=== PATIENT | male | born 1955 | race African-American/Black ===

== ENCOUNTER 2023-04-10 13:43 | Observation (INO) | payer MEDICARE, SELFPAY ==
[2023-04-10 14:41] LABS: #Eosinphils 0.1 10x3/uL (0.0-0.5); #Monocytes 0.7 10x3/uL (0.0-1.1); %Basophils 0.5 % (0.0-2.0); %Eosinophils 1.3 % (0.0-6.0); %Lymphocytes 22.3 % (18.0-47.0); %Monocytes 9.7 % (0.0-10.0); %Neutrophils 66.1 % (40.0-75.0); Hemoglobin 16.1 g/dL (13.5-17.5); Mean Corpuscular HGB CONC 35.8 g/dL (32.0-36.0); Mean Corpuscular Hemoglobin 32.6 pg (27.0-33.0); Mean Corpuscular Volume 91.1 fl (81.2-95.1); Mean Platelet Volume 9.7 fl (7.4-10.4); Platelet Count 175 10x3/uL (150-450); RBC Distribution Width 14.9 % (11.5-14.5); Red Blood Cell (RBC) Count 4.94 10x6/uL (4.32-5.72); White Blood Cell (WBC) Count 7.5 10x3/uL (3.5-10.5)
[2023-04-10 14:49] LABS: ALT (SGPT) 18 U/L (8-55); AST (SGOT) 16 U/L (5-34); Albumin 3.9 g/dL (3.4-4.8); Alkaline Phosphatase 55 U/L (40-110); Anion Gap 13 mmol/L (10-20); BUN (Urea Nitrogen) 17 mg/dL (8.4-25.7); Bilirubin, Total 0.8 mg/dL (0.2-1.2); Calc. Creatinine Clearance 0 mL/min (70-130); Calcium 9.2 mg/dL (7.8-10.44); Carbon Dioxide 27 mmol/L (23-31); Chloride 102 mmol/L (98-107); Estimated GFR 62; Globulin 2.9 g/dL (2.4-3.5); Glucose 123 mg/dL (80-115); Potassium 3.7 mmol/L (3.5-5.1); Protein, Total 6.8 g/dL (5.8-8.1); Sodium 138 mmol/L (136-145)
[2023-04-10 14:53] LABS: Troponin I 0.018 ng/mL (< 0.028)
[2023-04-10] MEDS ORDERED: Furosemide 40 MG (4 mL) VIAL ONE (19:16)
[2023-04-10] MEDS ORDERED: Potassium Chloride 20 MEQ TAB ONE (19:16)
[2023-04-10 19:50] LABS: Free T4 (Free Thyroxine) 0.88 ng/dL (0.70-1.48); Thyroid Stimulating Hormone 1.9963 uIU/mL (0.35-4.94)
[2023-04-10] MEDS ORDERED: Ondansetron PF 4 MG/2 ML Vial IVP PRN (20:07)
[2023-04-10] MEDS ORDERED: Guaifenesin DM 100-10/5 ML UDCUP PO PRN (20:07)
[2023-04-10] MEDS ORDERED: Calcium Carbonate 500 MG ChewTAB PO PRN (20:07)
[2023-04-10] MEDS ORDERED: Acetaminophen 325 MG TAB PO PRN (20:07)
[2023-04-10] MEDS ORDERED: Zolpidem Tartrate 5 MG TAB PO PRN (20:07)
[2023-04-10] MEDS ORDERED: Senokot S 8.6-50 MG TAB PO PRN (20:07)
[2023-04-10] MEDS ORDERED: Magnesium Sulfate/D5W 1 GM/100 ML BAG IVPB SCH (20:15)
[2023-04-10] MEDS ORDERED: Ipratropium/Albuterol 3 ML NEB NEB PRN (20:19)
[2023-04-10 23:30] VITALS: BMI 33.0
[2023-04-10] MEDS ORDERED: Carvedilol 25 MG TAB PO SCH (23:30)
[2023-04-10] MEDS ORDERED: Atorvastatin Calcium 20 MG TAB PO SCH (23:30)
[2023-04-10] MEDS ORDERED: Apixaban 5 MG TAB PO SCH (23:45)
[2023-04-10] MEDS ORDERED: Magnesium Sulfate/D5W 1 GM in Premix 1 BAG IVPB SCH (23:59)
[2023-04-11 04:23] LABS: Anion Gap 12 mmol/L (10-20); BUN (Urea Nitrogen) 17 mg/dL (8.4-25.7); Calc. Creatinine Clearance 110 mL/min (70-130); Calcium 9.1 mg/dL (7.8-10.44); Carbon Dioxide 26 mmol/L (23-31); Chloride 104 mmol/L (98-107); Estimated GFR 88; Glucose 144 mg/dL (80-115); Magnesium 2.2 mg/dL (1.6-2.6); Potassium 3.7 mmol/L (3.5-5.1); Sodium 138 mmol/L (136-145)
[2023-04-11 04:29] LABS: Troponin I 0.016 ng/mL (< 0.028)
[2023-04-11] MEDS ORDERED: Budesonide 0.5 MG/2 ML NEB INH SCH (06:30)
[2023-04-11] MEDS ORDERED: Furosemide 40 MG TAB PO SCH (07:30)
[2023-04-11] MEDS ORDERED: Carvedilol 25 MG TAB PO SCH (08:00)
[2023-04-11] MEDS ORDERED: Methimazole 5 MG TAB PO SCH (09:00)
[2023-04-11] MEDS ORDERED: Apixaban 5 MG TAB PO SCH (09:00)
[2023-04-11] MEDS ORDERED: Allopurinol 100 MG TAB PO SCH (09:00)
[2023-04-11 16:16] VITALS: BP 176/76; TEMP 98.6
[2023-04-11] MEDS ORDERED: Atorvastatin Calcium 20 MG TAB PO SCH (21:00)
== END 2023-04-11 15:45 | disposition home or self-care (01) ==
LOC: CSHERS 13:43 → CSHTELE 18:58
PROVIDERS: ADMIT Student in an Organized Health Care Education/Training Program; ATTEND Nurse Practitioner Acute Care
PROC: B246ZZZ Ultrasonography of Right and Left Heart (ICD-10-PCS; principal; 2023-04-10)
DX: R55 Syncope and collapse (principal); I48.91 Unspecified atrial fibrillation; I50.9 Heart failure, unspecified; E78.5 Hyperlipidemia, unspecified; I11.0 Hypertensive heart disease with heart failure; I49.8 Other specified cardiac arrhythmias; E66.9 Obesity, unspecified; I16.0 Hypertensive urgency; I25.2 Old myocardial infarction; E03.9 Hypothyroidism, unspecified; M10.9 Gout, unspecified; J44.9 Chronic obstructive pulmonary disease, unspecified; Z95.810 Presence of automatic (implantable) cardiac defibrillator; Z79.899 Other long term (current) drug therapy; Z79.01 Long term (current) use of anticoagulants; Z90.49 Acquired absence of other specified parts of digestive tract; Z87.891 Personal history of nicotine dependence; Z79.890 Hormone replacement therapy
CPT/HCPCS: 71045; 80048; 83735 ×2; 83880 ×2; 84439; 84484 ×2; 93005; 93306; 94640 ×2; 96374 ×2; 99285; G0378 ×2; J3475; 36415; 80053; 84443; 85025; J1940; J7620; J7626

== ENCOUNTER 2023-04-15 00:12 | Inpatient (IN) | payer MEDICARE, OTHER ==
[2023-04-15 00:30] LABS: #Eosinphils 0.2 10x3/uL (0.0-0.5); #Monocytes 0.7 10x3/uL (0.0-1.1); #Neutrophils 5.1 10x3/uL (1.5-8.4); %Basophils 0.5 % (0.0-2.0); %Eosinophils 3.2 % (0.0-6.0); %Lymphocytes 19.7 % (18.0-47.0); %Neutrophils 67.3 % (40.0-75.0); Hematocrit 47.6 % (38.8-50.0); Hemoglobin 16.7 g/dL (13.5-17.5); Mean Corpuscular HGB CONC 35.1 g/dL (32.0-36.0); Mean Corpuscular Hemoglobin 32.4 pg (27.0-33.0); Mean Corpuscular Volume 92.4 fl (81.2-95.1); Mean Platelet Volume 9.7 fl (7.4-10.4); Platelet Count 177 10x3/uL (150-450); Red Blood Cell (RBC) Count 5.15 10x6/uL (4.32-5.72); White Blood Cell (WBC) Count 7.6 10x3/uL (3.5-10.5)
[2023-04-15 00:48] LABS: ALT (SGPT) 27 U/L (8-55); AST (SGOT) 22 U/L (5-34); Albumin 4.1 g/dL (3.4-4.8); Alkaline Phosphatase 59 U/L (40-110); Anion Gap 14 mmol/L (10-20); BUN (Urea Nitrogen) 18 mg/dL (8.4-25.7); Bilirubin, Total 0.5 mg/dL (0.2-1.2); Calc. Creatinine Clearance 0 mL/min (70-130); Calcium 9.8 mg/dL (7.8-10.44); Carbon Dioxide 26 mmol/L (23-31); Chloride 104 mmol/L (98-107); Estimated GFR 72; Globulin 3.3 g/dL (2.4-3.5); Glucose 126 mg/dL (80-115); Potassium 4.1 mmol/L (3.5-5.1); Protein, Total 7.4 g/dL (5.8-8.1); Sodium 140 mmol/L (136-145)
[2023-04-15 00:54] LABS: Troponin I 0.023 ng/mL (< 0.028)
[2023-04-15 01:14] LABS: Magnesium 2.2 mg/dL (1.6-2.6)
[2023-04-15] MEDS ORDERED: Senokot S 8.6-50 MG TAB PO PRN (02:10)
[2023-04-15] MEDS ORDERED: Acetaminophen 325 MG TAB PO PRN (02:10)
[2023-04-15] MEDS ORDERED: Ventolin HFA Inhaler 60 PUFF INHALER INH PRN (02:12)
[2023-04-15] MEDS ORDERED: Amiodarone 450 MG in Dextrose 5% in Water 250 ML IVPB SCH (02:15)
[2023-04-15] MEDS ORDERED: Losartan 25 MG TAB PO SCH ×2 (02:15→09:00)
[2023-04-15] MEDS ORDERED: Amiodarone In Dextrose 200 ML ONE (02:17)
[2023-04-15] MEDS ORDERED: Amiodarone 150 MG/3 ML VIAL ONE (02:17)
[2023-04-15] MEDS ORDERED: Amiodarone In Dextrose 200 ML IVPB SCH (02:30)
[2023-04-15 03:24] VITALS: BMI 32.7
[2023-04-15 08:33] LABS: Anion Gap 15 mmol/L (10-20); BUN (Urea Nitrogen) 19 mg/dL (8.4-25.7); Calc. Creatinine Clearance 105 mL/min (70-130); Calcium 9.2 mg/dL (7.8-10.44); Carbon Dioxide 21 mmol/L (23-31); Chloride 106 mmol/L (98-107); Estimated GFR 85; Glucose 137 mg/dL (80-115); Magnesium 2.1 mg/dL (1.6-2.6); Potassium 4.1 mmol/L (3.5-5.1); Sodium 138 mmol/L (136-145)
[2023-04-15] MEDS: Famotidine 20 MG TAB PO SCH ×2 (08:43→20:43)
[2023-04-15] MEDS: Allopurinol 100 MG TAB PO SCH (08:43)
[2023-04-15] MEDS: Carvedilol 25 MG TAB PO SCH ×2 (08:43→20:43)
[2023-04-15] MEDS: Furosemide 40 MG TAB PO SCH (08:43)
[2023-04-15] MEDS: Apixaban 5 MG TAB PO SCH ×2 (08:44→20:43)
[2023-04-15] MEDS: Methimazole 5 MG TAB PO SCH (08:57)
[2023-04-15] MEDS ORDERED: Methimazole 5 MG TAB PO SCH (09:00)
[2023-04-15] MEDS: Amiodarone 200 MG TAB PO SCH ×2 (09:06→20:43)
[2023-04-15] MEDS ORDERED: Lisinopril 20 MG TAB PO SCH (09:30)
[2023-04-15] MEDS: Budesonide 0.25 MG/2 ML NEB INH SCH ×2 (10:05→21:25)
[2023-04-15] MEDS: Atorvastatin Calcium 20 MG TAB PO SCH (20:43)
[2023-04-16 03:45] LABS: #Eosinphils 0.2 10x3/uL (0.0-0.5); #Monocytes 0.7 10x3/uL (0.0-1.1); #Neutrophils 4.5 10x3/uL (1.5-8.4); %Basophils 0.5 % (0.0-2.0); %Eosinophils 2.8 % (0.0-6.0); %Lymphocytes 25.8 % (18.0-47.0); %Monocytes 9.6 % (0.0-10.0); Hematocrit 45.1 % (38.8-50.0); Hemoglobin 15.8 g/dL (13.5-17.5); Mean Corpuscular Hemoglobin 32.3 pg (27.0-33.0); Mean Corpuscular Volume 92.2 fl (81.2-95.1); Mean Platelet Volume 10.6 fl (7.4-10.4); Platelet Count 192 10x3/uL (150-450); RBC Distribution Width 14.6 % (11.5-14.5); Red Blood Cell (RBC) Count 4.89 10x6/uL (4.32-5.72); White Blood Cell (WBC) Count 7.4 10x3/uL (3.5-10.5)
[2023-04-16 04:04] LABS: Anion Gap 15 mmol/L (10-20); BUN (Urea Nitrogen) 20 mg/dL (8.4-25.7); Calc. Creatinine Clearance 89 mL/min (70-130); Calcium 9.1 mg/dL (7.8-10.44); Carbon Dioxide 21 mmol/L (23-31); Chloride 104 mmol/L (98-107); Estimated GFR 69; Glucose 144 mg/dL (80-115); Sodium 136 mmol/L (136-145)
[2023-04-16] MEDS: Budesonide 0.25 MG/2 ML NEB INH SCH ×2 (07:33→19:00)
[2023-04-16] MEDS ORDERED: Lisinopril 20 MG TAB PO SCH (09:00)
[2023-04-16] MEDS: Amiodarone 200 MG TAB PO SCH ×2 (09:05→18:33)
[2023-04-16] MEDS: Allopurinol 100 MG TAB PO SCH (09:05)
[2023-04-16] MEDS: Apixaban 5 MG TAB PO SCH ×2 (09:06→18:33)
[2023-04-16] MEDS: Carvedilol 25 MG TAB PO SCH ×2 (09:06→18:33)
[2023-04-16] MEDS: Furosemide 40 MG TAB PO SCH (09:06)
[2023-04-16] MEDS: Famotidine 20 MG TAB PO SCH ×2 (09:06→18:33)
[2023-04-16] MEDS: Methimazole 5 MG TAB PO SCH (09:07)
[2023-04-16 16:21] VITALS: BP 164/83; TEMP 98.6
[2023-04-16] MEDS: Atorvastatin Calcium 20 MG TAB PO SCH (18:33)
== END 2023-04-16 19:16 | disposition home or self-care (01) | DRG 309 ==
LOC: CSHERS 00:12 → CSHTELE 02:11
PROVIDERS: ADMIT Student in an Organized Health Care Education/Training Program; ATTEND Nurse Practitioner Family
DX: I47.20 Ventricular tachycardia, unspecified (principal); I42.8 Other cardiomyopathies; I50.42 Chronic combined systolic (congestive) and diastolic (congestive) heart failure; I48.20 Chronic atrial fibrillation, unspecified; E78.5 Hyperlipidemia, unspecified; Z90.49 Acquired absence of other specified parts of digestive tract; I25.10 Atherosclerotic heart disease of native coronary artery without angina pectoris; I25.2 Old myocardial infarction; I11.0 Hypertensive heart disease with heart failure; J44.9 Chronic obstructive pulmonary disease, unspecified; I16.0 Hypertensive urgency; M10.9 Gout, unspecified; E03.9 Hypothyroidism, unspecified; E66.9 Obesity, unspecified; Z79.01 Long term (current) use of anticoagulants; Z79.899 Other long term (current) drug therapy; Z88.8 Allergy status to other drugs, medicaments and biological substances; Z68.32 Body mass index [BMI] 32.0-32.9, adult; E05.90 Thyrotoxicosis, unspecified without thyrotoxic crisis or storm
CPT/HCPCS: 36415; 71045; 80048; 80053; 83735; 84484; 85025; 93005; 94640; J0282; J0283; J7626